=== PATIENT | male | born 1990 | race Hispanic/Latino ===

== ENCOUNTER 2017-06-30 09:38 | Emergency (ER) | payer MEDICAID ==
[2017-06-30 09:58] VITALS: O2SAT 99; BMI 21.9
[2017-06-30 10:57] LABS: BASO # 0.1 K/uL (0.0-0.2); BASO % 0.6 % (0.0-2.0); EOS # 0.1 K/uL (0.0-0.7); EOS % 1.3 % (0.0-4.0); HEMATOCRIT 38.1 % (35.0-51.0); LYMPH # 2.2 K/uL (1.0-4.3); LYMPH % 19.7 % (20.0-40.0); MEAN CORPUSCULAR HEMOGLOBIN 29.6 pg (27.0-31.0); MEAN CORPUSCULAR HGB CONC 32.6 g/dL (33.0-37.0); MEAN PLATELET VOLUME 8.2 fL (7.2-11.7); MONO % 9.3 % (0.0-10.0); RED CELL DISTRIBUTION WIDTH 14.5 % (11.5-14.5); WHITE BLOOD COUNT 11.1 K/uL (4.8-10.8)
[2017-06-30 11:02] LABS: RBC URINE 2 /hpf (0-3); URINE BILIRUBIN NEGATIVE (NEGATIVE); URINE BLOOD NEGATIVE (NEGATIVE); URINE COLOR Yellow (YELLOW); URINE GLUCOSE (UA) NORMAL (Normal); URINE KETONE NEGATIVE (NEGATIVE); URINE LEUKOCYTE ESTERASE NEG Leu/uL (Negative); URINE PROTEIN NEGATIVE (NEGATIVE); URINE UROBILINOGEN NORMAL mg/dL (0.2-1.0); WBC URINE < 1 /hpf (0-5)
--- NOTE | 2017-06-30 11:10 | C.PDOC ---
History Of Present Illness 27 year old male presents to the ED seeking detox from heroin and cocaine. His last use was one hour prior to arrival and has attempted detox in another facility previously. Patient notes occasional marijuana use and denies physical complaints, suicidal, or homicidal ideations. Time Seen by Provider: 06/30/17 10:08 Chief Complaint (Nursing): Substance Abuse History Per: Patient History/Exam Limitations: no limitations Suicide/Self Injury Attempted (Context): None Modifying Factor(s): Marijuana, Narcotics (heroin ), Cocaine Severity: None Pain Scale Rating Of: 0 Associated Symptoms: denies: Suicidal Thoughts, Suicidal Plan Involuntary Hold By: None Recent travel outside of the [place]: No Past Medical History Reviewed: Historical Data, Nursing Documentation, Vital Signs Vital Signs: Last Vital Signs Temp 97.5 F L 06/30/17 13:00 Pulse 70 06/30/17 13:00 Resp 20 06/30/17 13:00 BP 116/63 06/30/17 13:00 Pulse Ox 99 06/30/17 13:00 - Medical History PMH: Asthma Family History: States: Unknown Family Hx - Social History Hx Alcohol Use: Yes Hx Substance Use: Yes - Immunization History Hx Tetanus Toxoid Vaccination: No Hx Influenza Vaccination: No Hx Pneumococcal Vaccination: No Review Of Systems Constitutional: Negative for: Fever, Chills Cardiovascular: Negative for: Chest Pain, Palpitations Respiratory: Negative for: Cough, Shortness of Breath Gastrointestinal: Negative for: Nausea, Vomiting, Abdominal Pain, Diarrhea Physical Exam - Physical Exam Appears: Non-toxic, No Acute Distress Skin: Warm, Dry Head: Atraumatic, Normacephalic Eye(s): bilateral: Normal Inspection Oral Mucosa: Moist Neck: Normal ROM, Supple Chest: Symmetrical, No Deformity Cardiovascular: Rhythm Regular Respiratory: Normal Breath Sounds, No Rales, No Rhonchi, No Wheezing Gastrointestinal/Abdominal: Soft, No Tenderness, No Guarding Extremity: Bilateral: Atraumatic, Normal Color And Temperature, Normal ROM Neurological/Psych: Oriented x3, Normal Speech Gait: Steady ED Course And Treatment - Laboratory Results Result Diagrams: 06/30/17 10:52 06/30/17 10:52 Lab Interpretation: No Acute Changes O2 Sat by Pulse Oximetry: 99 (room air ) Pulse Ox Interpretation: Normal Progress Note: UA and blood work were ordered. cleaning and maintenance worker evaluated patient at bed side. Upon medical clearance, patient will be accepted for detox. Medical Decision Making Medical Decision Making: Labs ordered and reviewed. In my clinical judgment patient is medically cleared and stable for psychiatric admission. cleaning and maintenance worker Lito evaluates patient at bedside. Case was discussed with Dr Alanis who accepts case. Patient then decided he does not wish to stay for inpatient detox. He states has court date coming up and cannot be in hospital. Explain to patient if he changes his mind will have to restart process, he understands. Patient stable for discharge. Disposition Counseled Patient/Family Regarding: Diagnosis, Need For Followup - Disposition Disposition: HOME/ ROUTINE Disposition Time: 12:53 Condition: STABLE Additional Instructions: [facility] at [address] [place] [address]. Please call [phone] or [phone] to arrange appointment. If you need to speak to someone immediately call Crisis Hotline [phone] Please call [phone] or [phone] to inquire about our Detox availability , may speak to coordinator Lauren Instructions: Narcotic Abuse (ED) Forms: [employer] (Guamanian) - POA Present On Arrival: None - Clinical Impression Clinical Impression: Polysubstance abuse - PA / KNOWLEDGE MANAGER / Resident Statement MD/DO has reviewed & agrees with the documentation as recorded. - Scribe Statement The provider has reviewed the documentation as recorded by the Scribjosef Dunlap All medical record entries made by the Jackibjosef were at my direction and personally dictated by me. I have reviewed the chart and agree that the record accurately reflects my personal performance of the history, physical exam, medical decision making, and the department course for this patient. I have also personally directed, reviewed, and agree with the discharge instructions and disposition.
[2017-06-30 11:11] LABS: ALB/GLOB RATIO 1.2 (1.0-2.1); ALCOHOL SERUM < 10 mg/dl (0-10); ALKALINE PHOSPHATASE 58 U/L (38-126); ALT/SGPT 35 U/L (21-72); AST/SGOT 19 U/L (17-59); BILIRUBIN,TOTAL 0.2 mg/dL (0.2-1.3); BLOOD UREA NITROGEN 16 mg/dL (9-20); CALCIUM 8.9 mg/dl (8.6-10.4); CARBON DIOXIDE 29 mmol/L (22-30); CHLORIDE 102 mmol/L (98-107); GFR AFRICAN-AMERICAN > 60; GLUCOSE,RANDOM 68 mg/dL (75-110); POTASSIUM 3.9 mmol/L (3.6-5.2); SODIUM 143 mmol/L (132-148); TOTAL PROTEIN 6.3 g/dL (6.3-8.3)
[2017-06-30 13:00] VITALS: BP 116/63; PULSE 70; RESP 20; TEMP 97.5
== END 2017-06-30 13:24 | disposition home or self-care (01) ==
LOC: C.ER 09:38
DX: F19.10 Other psychoactive substance abuse, uncomplicated (principal)

== ENCOUNTER 2017-07-01 11:37 | Emergency (ER) | payer MEDICAID ==
[2017-07-01 11:37] VITALS: BMI 21.9
[2017-07-01 11:49] VITALS: BP 127/80; PULSE 76; RESP 16; TEMP 98; O2SAT 98
--- NOTE | 2017-07-01 12:00 | C.PDOC ---
History Of Present Illness 27 y/o male presents to the ED requesting heroin detox. Apparently patient was seen here yesterday and was pre-screened for detox admission, but ended up leaving prior to being admitted. He states his last use of heroin was this morning. Otherwise no physical complaints. PMD: None Time Seen by Provider: 07/01/17 11:44 Chief Complaint (Nursing): Substance Abuse History Per: Patient History/Exam Limitations: no limitations Onset/Duration Of Symptoms: Persistent Modifying Factor(s): Narcotics Severity: Moderate Associated Symptoms: denies: Depression, Suicidal Thoughts Past Medical History Reviewed: Historical Data, Nursing Documentation, Vital Signs Vital Signs: Last Vital Signs Temp 98 F 07/01/17 11:47 Pulse 76 07/01/17 11:47 Resp 16 07/01/17 11:47 BP 127/80 07/01/17 11:47 Pulse Ox 98 07/01/17 12:07 - Medical History PMH: Asthma Surgical History: No Surg Hx Family History: States: No Known Family Hx - Social History Hx Alcohol Use: Yes Hx Substance Use: Yes - Immunization History Hx Tetanus Toxoid Vaccination: No Hx Influenza Vaccination: No Hx Pneumococcal Vaccination: No Review Of Systems Except As Marked, All Systems Reviewed And Found Negative. Constitutional: Negative for: Fever Cardiovascular: Negative for: Chest Pain Respiratory: Negative for: Shortness of Breath Gastrointestinal: Negative for: Abdominal Pain Neurological: Negative for: Headache, Dizziness Psych: Positive for: Other (Substance abuse). Negative for: Suicidal ideation Physical Exam - Physical Exam Appears: Well, Non-toxic, No Acute Distress Skin: Normal Color, Warm, Dry Head: Atraumatic, Normacephalic Eye(s): bilateral: Normal Inspection Oral Mucosa: Moist Cardiovascular: Rhythm Regular Respiratory: Normal Breath Sounds, No Rales, No Rhonchi, No Wheezing Gastrointestinal/Abdominal: Normal Exam, Bowel Sounds, Soft, No Tenderness Back: Normal Inspection Extremity: Bilateral: Atraumatic, Normal Color And Temperature, Normal ROM Neurological/Psych: Oriented x3 Gait: Steady ED Course And Treatment O2 Sat by Pulse Oximetry: 98 (RA) Pulse Ox Interpretation: Normal Progress Note: Spoke with crisis counselor. No detox beds are currently available. Patient will be discharged home, was instructed to call again for prescreening or try for detox bed at later time/date. Disposition Counseled Patient/Family Regarding: Diagnosis, Need For Followup - Disposition Referrals: [facility] [Outside] Disposition: HOME/ ROUTINE Disposition Time: 12:00 Condition: STABLE Additional Instructions: CALL FOR PRESCREENING FOR DETOX OR RETURN TO ER TO TRY AT LATER TIME/DATE Instructions: Narcotic Abuse (ED) Forms: [employer] (Chilean) Print Language: BULGARIAN - Clinical Impression Clinical Impression: Heroin dependence - Scribe Statement The provider has reviewed the documentation as recorded by the Scribe Bhavana Gonzalez All medical record entries made by the Scribe were at my direction and personally dictated by me. I have reviewed the chart and agree that the record accurately reflects my personal performance of the history, physical exam, medical decision making, and the department course for this patient. I have also personally directed, reviewed, and agree with the discharge instructions and disposition.
== END 2017-07-01 12:08 | disposition home or self-care (01) ==
LOC: C.ER 11:37
DX: F11.20 Opioid dependence, uncomplicated (principal)

== ENCOUNTER → 2017-07-02 10:16 | Emergency (ER) | payer MEDICAID ==
[2017-07-02 10:16] VITALS: BMI 21.9
== END | disposition left against medical advice (07) ==
LOC: C.ER 10:16
DX: Z04.8 Encounter for examination and observation for other specified reasons (principal); Z02.9 Encounter for administrative examinations, unspecified

== ENCOUNTER 2017-07-10 15:12 | Emergency (ER) | payer MEDICAID ==
[2017-07-10 15:12] VITALS: BMI 21.9
[2017-07-10 15:47] VITALS: BP 117/73; PULSE 90; RESP 18; TEMP 97.9; O2SAT 98
--- NOTE | 2017-07-10 15:50 | C.PDOC ---
History Of Present Illness 27 yr old male presents to the ER requesting detox from cocaine and heroin. Patient is a pre-screen. Last use OPERATIONS MGR. Denies fever, chills, nausea, vomiting, abdominal pain, weakness or numbness. Denies SI, HI or hallucinations. REQUESTING DETOX COCAINE AND HEROIN. PRESCREEN. ONSET OPERATIONS MGR. NO FEVER. +REDNESS R ARM UNK DURATION. LAST INJECTION R AC. EXAM NAD SKIN +CELLULITIS R AC, INNER FOREARM. +TRACK VILLALPANDO B/L AC. PSYCH CALM COOPERATIVE NO ACUTE INTOX Time Seen by Provider: 07/10/17 15:46 History Per: Patient History/Exam Limitations: no limitations Onset/Duration Of Symptoms: Days Past Medical History Reviewed: Historical Data, Nursing Documentation, Vital Signs Vital Signs: Last Vital Signs Temp 97.9 F 07/10/17 15:47 Pulse 90 07/10/17 15:47 Resp 18 07/10/17 15:47 BP 117/73 07/10/17 15:47 Pulse Ox 98 07/10/17 16:37 - Medical History PMH: Asthma Family History: States: No Known Family Hx - Social History Hx Alcohol Use: Yes Hx Substance Use: Yes - Immunization History Hx Tetanus Toxoid Vaccination: No Hx Influenza Vaccination: No Hx Pneumococcal Vaccination: No Review Of Systems Except As Marked, All Systems Reviewed And Found Negative. Constitutional: Negative for: Fever, Chills Gastrointestinal: Negative for: Nausea, Vomiting, Abdominal Pain Neurological: Negative for: Weakness, Numbness Physical Exam - Physical Exam Appears: Non-toxic, No Acute Distress Skin: Warm, Dry, Other ((+) Cellulities right AC, inner forearm. Track villalpando bilateral AC. ) Head: Atraumatic, Normacephalic Oral Mucosa: Moist Chest: Symmetrical, No Tenderness Cardiovascular: Rhythm Regular, No Murmur Respiratory: Normal Breath Sounds, No Rales, No Rhonchi, No Stridor, No Wheezing Extremity: Normal ROM, No Swelling Neurological/Psych: Oriented x3, Normal Speech, Normal Motor ED Course And Treatment O2 Sat by Pulse Oximetry: 98 (RA) Pulse Ox Interpretation: Normal - Radiology CXR: Interpreted by Nd CXR Interpretation: Yes: No Acute Disease - CT Scan/US X-Ray - Right Forearm Other Rad Studies (CT/US): Interpreted By Me CT/US Interpretation: Negative Progress - Re-Evaluation Re-evaluation Note: 07/10/17 16:28 SP EVAL CRISIS PT NOW NO LONGER WISHES DETOX ADMISSION. 07/10/17 16:35 pt refusing all treatment, LEFT PRIOR TO LABS AND ANTIBIOTICS. LEFT PRIOR TO RECEIVING DC PAPERWORK OR RX. - Data Reviewed Data Reviewed: Diagnostic imaging Medical Decision Making Medical Decision Making: PLAN: * X-Ray - Right Forearm * CXR * Alcohol Serum * Drug Screen * CBC * Urinalysis * Clindamycin IV Disposition Counseled Patient/Family Regarding: Studies Performed, Diagnosis, Need For Followup - Disposition Referrals: [facility] [Outside] [facility] [Outside] Disposition: HOME/ ROUTINE Disposition Time: 16:36 Condition: STABLE Prescriptions: Clindamycin [Cleocin] 300 mg PO QID #28 cap Instructions: Cellulitis (ED), Polysubstance Abuse (ED) - Clinical Impression Clinical Impression: Drug abuse, Cellulitis - Scribe Statement The provider has reviewed the documentation as recorded by the Roge Jewell Provider Attestation: All medical record entries made by the Roge were at my direction and personally dictated by me. I have reviewed the chart and agree that the record accurately reflects my personal performance of the history, physical exam, medical decision making, and the department course for this patient. I have also personally directed, reviewed, and agree with the discharge instructions and disposition.
--- NOTE | 2017-07-10 16:25 | RAD ---
HISTORY: DETOX COMPARISON: No prior. TECHNIQUE: Chest PA and lateral FINDINGS: LUNGS: No active pulmonary disease. PLEURA: No significant pleural effusion identified. No pneumothorax apparent. CARDIOVASCULAR: Normal. OSSEOUS STRUCTURES: No significant abnormalities. VISUALIZED UPPER ABDOMEN: Normal. OTHER FINDINGS: None. IMPRESSION: No active disease.
--- NOTE | 2017-07-10 16:40 | RAD ---
PROCEDURE: Radiographs of the Right Forearm HISTORY: REDNESS HO IVDA COMPARISON: None available. TECHNIQUE: Frontal and lateral views obtained. FINDINGS: BONES: No fracture or destructive lesion. JOINT SPACES: Unremarkable. OTHER FINDINGS: None. IMPRESSION: No significant or acute findings to account for/ related to the clinical presentation. Concordant results with the preliminary interpretation rendered by the emergency department physician procedure.
== END 2017-07-10 16:58 | disposition home or self-care (01) ==
LOC: C.ER 15:12
DX: F19.10 Other psychoactive substance abuse, uncomplicated (principal); L03.113 Cellulitis of right upper limb

== ENCOUNTER 2017-11-23 15:45 | Inpatient (IN) | payer MEDICAID ==
[2017-11-23 15:45] VITALS: BMI 21.9
[2017-11-23 18:01] LABS: BASO % 0.5 % (0.0-2.0); EOS # 0.1 K/uL (0.0-0.7); HEMOGLOBIN 14.1 g/dL (12.0-18.0); LYMPH # 2.5 K/uL (1.0-4.3); MEAN CELL VOLUME 92.1 fL (80.0-94.0); MEAN CORPUSCULAR HEMOGLOBIN 31.3 pg (27.0-31.0); MEAN PLATELET VOLUME 8.9 fL (7.2-11.7); MONO # 0.5 K/uL (0.0-0.8); MONO % 4.6 % (0.0-10.0); NEUT # 6.9 K/uL (1.8-7.0); NEUT % 68.9 % (50.0-75.0); RBC 4.52 Mil/uL (4.40-5.90); RED CELL DISTRIBUTION WIDTH 13.9 % (11.5-14.5)
[2017-11-23 18:12] LABS: ALB/GLOB RATIO 1.5 (1.0-2.1); ALT/SGPT 30 U/L (21-72); AST/SGOT 18 U/L (17-59); BLOOD UREA NITROGEN 13 mg/dL (9-20); CALCIUM 8.5 mg/dl (8.6-10.4); GFR AFRICAN-AMERICAN > 60; GFR NON-AFRICAN AMERICAN > 60
[2017-11-23 18:20] LABS: BARBITURATES, UR NEGATIVE (NEGATIVE); BENZODIAZEPINES, UR NEGATIVE (NEGATIVE); PHENCYCLIDINE, UR NEGATIVE (NEGATIVE)
[2017-11-23 18:21] LABS: OPIATES, UR POSITIVE (NEGATIVE); SQUAMOUS EPITHIAL < 1 /hpf (0-5); URINE BACTERIA RARE (<OCC); URINE BILIRUBIN NEGATIVE (NEGATIVE); URINE BLOOD NEGATIVE (NEGATIVE); URINE CLARITY Clear (Clear); URINE COLOR Yellow (YELLOW); URINE GLUCOSE (UA) NORMAL (Normal); URINE LEUKOCYTE ESTERASE NEG Leu/uL (Negative); URINE NITRATE NEGATIVE (NEGATIVE); URINE PROTEIN NEGATIVE (NEGATIVE); URINE UROBILINOGEN NORMAL mg/dL (0.2-1.0)
--- NOTE | 2017-11-23 18:21 | C.PDOC ---
27 y/o male presents to ED requesting Heroin detox. Patient states last used was earlier today and denies IV use. Patient has no history of seizures and denies SI/HI or any other complaints at this time. (Teresa Mendez) History Per: Patient History/Exam Limitations: no limitations Onset/Duration Of Symptoms: Days Current Symptoms Are (Timing): Still Present Suicide/Self Injury Attempted (Context): None <Teersa Mendez - Last Filed: 11/23/17 18:53> <Lisandro Billingsley - Last Filed: 11/23/17 20:18> Time Seen by Provider: 11/23/17 16:08 Chief Complaint (Nursing): Substance Abuse Past Medical History Reviewed: Historical Data, Nursing Documentation, Vital Signs - Medical History PMH: Asthma Surgical History: No Surg Hx Family History: States: No Known Family Hx - Social History Hx Alcohol Use: Yes Hx Substance Use: Yes (Herion - sniff) - Immunization History Hx Tetanus Toxoid Vaccination: No Hx Influenza Vaccination: No Hx Pneumococcal Vaccination: No <Teresa Mendez - Last Filed: 11/23/17 18:53> Vital Signs: Last Vital Signs Temp 99 F 11/23/17 17:37 Pulse 100 H 11/23/17 17:37 Resp 14 11/23/17 17:37 BP 120/75 11/23/17 20:08 Pulse Ox 97 11/23/17 18:54 Review Of Systems Constitutional: Negative for: Fever, Chills Gastrointestinal: Negative for: Nausea, Vomiting Skin: Negative for: Rash Psych: Negative for: Suicidal ideation <Teresa Mendez - Last Filed: 11/23/17 18:53> Physical Exam - Physical Exam Appears: Non-toxic, No Acute Distress Skin: Warm, Dry, No Rash Head: Atraumatic, Normacephalic Eye(s): bilateral: Normal Inspection, EOMI Nose: Normal Oral Mucosa: Moist Neck: Normal ROM, Supple Chest: Symmetrical Cardiovascular: Rhythm Regular Respiratory: Normal Breath Sounds, No Accessory Muscle Use, No Rales, No Rhonchi , No Wheezing Gastrointestinal/Abdominal: Soft, No Tenderness, No Guarding, No Rebound Neurological/Psych: Oriented x3 Gait: Steady <Teresa Mendez - Last Filed: 11/23/17 18:53> ED Course And Treatment - Laboratory Results Result Diagrams: 11/23/17 17:57 11/23/17 17:57 O2 Sat by Pulse Oximetry: 97 (RA) Pulse Ox Interpretation: Normal Progress Note: CAse endorsed to Dr Billingsley pending crisis evaluation. <Teresa Mendez - Last Filed: 11/23/17 18:53> - Laboratory Results Result Diagrams: 11/23/17 17:57 11/23/17 17:57 <Lisandro Billingsley - Last Filed: 11/23/17 20:18> Disposition - Disposition Disposition Time: 18:53 <Teresa Mendez - Last Filed: 11/23/17 18:53> Discussed With DrReema: Lisa Silverio Doctor Will See Patient In The: Hospital Counseled Patient/Family Regarding: Diagnosis - Disposition Disposition Time: 20:17 <Lisandro Billingsley - Last Filed: 11/23/17 20:18> - Disposition Disposition: HOSPITALIZED Condition: STABLE Forms: [employer] (Setswana) - Clinical Impression Clinical Impression: Opioid dependence, Drug abuse - PA / PHLEBOTOMY LAB ASSISTANT / Resident Statement MD/DO has reviewed & agrees with the documentation as recorded. - Scribe Statement The provider has reviewed the documentation as recorded by the Scribe <Teresa Mendez - Last Filed: 11/23/17 18:53> <Lisandro Billingsley - Last Filed: 11/23/17 20:18> - Scribe Statement Na Hernandez All medical record entries made by the Scribe were at my direction and personally dictated by me. I have reviewed the chart and agree that the record accurately reflects my personal performance of the history, physical exam, medical decision making, and the department course for this patient. I have also personally directed, reviewed, and agree with the discharge instructions and disposition. (Teresa Mendez)
--- NOTE | 2017-11-23 20:41 | PCM.BM ---
<Ijeoma Marie - Last Filed: 11/23/17 20:40> Treatment Plan Problems - Problems identified on initial assessmt potiential for opiate withdrawal Date Initiated: 11/23/17 Time Initiated: 20:40 Assessment reference: NA Status: Active Treatment assets and liabiliti Patient Assests: ADL independent, physically healthy Patient Liabilities: substance abuse - Milieu Protocol Maintain good personal hygiene: daily Encourage regular showers, daily Remind patient to perform daily oral care, daily Assist patient to perform ADL's Maintain personal safety: every shift Educate patient to report safety concerns to staff, every shift Monitor environment for contraband/sharps Medication safety: Monitor for expected outcome, potential side effects: every shift, Assess barriers to learning: every shift, Assess readiness for medication education: every shift <Kate Alanis - Last Filed: 11/24/17 23:37> - Diagnosis (1) Opioid dependence Status: Acute Interventions: 11/24/17 23:37 * Assess 7x/week regarding severity of withdrawal * Educate regarding risks, benefits, side effects and alternatives of medications * Use Motivational Interviewing for abstinence * Use CBT for relapse prevention * Medication management for withdrawal symptoms * Encourage medication assisted treatment *
[2017-11-24] MEDS: Multiple Vitamins Tab PO SCH (11:02)
--- NOTE | 2017-11-24 15:35 | PCM.PSYCH ---
Initial Psychiatric Evaluation - Initial Psychiatric Evaluation Type of Admission: Voluntary Legal Status: Capacity Chief Complaint (in patient's own words): "I want to detox" History of Present Illness and Precipitating Events: The patient is a 27 single, , male patient with 1 small child. Pt lives with his parents and is not currently employed. He said he recently left [facility] on October because his girlfriend said she needed his help taking care of the baby. The pt does not live with girlfriend. The pt reports snorting 8 bags of heroin a day, which he began using 8 years ago. The pt also reports smoking cocaine, beginning at the age of 22. He reports drinking alcohol and smoking weed occasionally. Pt denies other substance use. The pt estimates that he has been to detox 15 times and reports that its because I dont listen. The pt has been to rehab 4 times in the past and has been in a methadone maintenance program where his dose was 60mg. He reports overdosing once or twice in the past. Patient is currently on probation until May. Patient reports he is HIV and Hepatitis negative. Fam Hx of alcoholism in both grandparents Medical Hx - Asthma and seasonal allergies\\ Psych Hx - denies Current Medications: Active Medications Generic Name Dose Route Start Last Admin Trade Name Freq PRN Reason Stop Dose Admin Clonidine HCl 0.1 mg 11/23/17 21:00 Catapres PO Q8 PRN COWS Score More or Equal to 5 Folic Acid 1 mg 11/24/17 10:00 11/24/17 11:02 Folic Acid PO 1 mg DAILY RIANA Administration Hydroxyzine HCl 25 mg 11/24/17 10:21 Atarax PO Q4H PRN Anxiety Ibuprofen 400 mg 11/23/17 21:02 Motrin Tab PO Q6H PRN Pain, moderate (4-7) Loperamide HCl 2 mg 11/23/17 21:00 Imodium PO Q8 PRN Diarrhea Multivitamins 1 tab 11/24/17 10:00 11/24/17 11:02 Hexavitamin PO 1 tab DAILY RIANA Administration Ondansetron HCl 4 mg 11/23/17 21:00 Zofran Tab PO Q8 PRN Nausea/Vomiting Thiamine HCl 100 mg 11/24/17 10:00 11/24/17 11:01 Vitamin B1 Tab PO 100 mg DAILY RIANA Administration Trazodone HCl 100 mg 11/24/17 10:21 Desyrel PO HS PRN Insomnia Past Psychiatric History - Past Psychiatric History Previous Treatment History: Inpatient Pertinent Medical Hx (Current Medical&Sleep Prob, Allergies): Allergies Allergy/AdvReac Type Severity Reaction Status Date / Time amoxicillin Allergy Intermediate Verified 11/23/17 17:40 apple Allergy Intermediate Verified 11/23/17 17:40 FISH Allergy Intermediate Verified 11/23/17 17:40 No Known Home Med 11/23/17 Review of Systems - Neurological Neurological: UNREMARKABLE - Psychiatric Psychiatric: Abnormal Sleep Pattern, Anxiety. absent: Depression, Hallucinations, Homicidal Ideation, Hopelessness, Suicidal Ideation Mental Status Examination - Personal Presentation Personal Presentation: Looks stated age - Affect Affect: Broad - Motor Activity Motor Activity: Calm - Reliability in Providing Information Reliability in Providing Information: Good - Speech Speech: Organized - Mood Mood: Neutral - Formal Thought Process Formal Thought Process: No Impairment - Obsessions/Compulsions Obsessions: None Compulsions: None - Cognitive Functions Orientation: Person, Place, Situation, Time Sensorium: Drowsy Attention/Concentration: Attentive Abstract Thinking: [place] Estimate of Intelligence: Average Judgement: Intact, as evidence by: Insight regarding need for hospitalization Memory: Recent intact, as evidence by: Ability to recall events of the day, Remote intact, as evidenced by: Abilit to recall sig. life events - Risk Risk: Withdrawal, Diminished functioning - Strength & Assets Inventory Strength & Assets Inventory: Cooperative - Limitations Limitations: Living alone Additional comments: unemployed, poor support DSM 5 DX - DSM 5 DSM 5 Diagnosis: Opioid use d/o - severe Opioid withdrawal Cocaine use d/o - severe Alcohol Use d/o - severe Cannabis Use d/o - moderate - Recommended/Plan of Treatment Treatment Recommendations and Plan of Treatment: Methadone detox Gabapentin for augmentation As needed medications All risks, benefits and alternatives of the meds discussed, and the pt agreed and understood. Attend groups and activities Supportive therapy and psychoeducation OK for abstinence CBT for relapse prevention Encourage MAT Refer to rehab or IOP, and self-help groups Smoking cessation with OK 35 min Projected ELOS: 4-5 days Prognosis: good with treatment
[2017-11-24 21:32] VITALS: RESP 18
[2017-11-25] MEDS: Multiple Vitamins Tab PO SCH (10:01)
[2017-11-25 11:15] VITALS: BP 123/82; PULSE 80; TEMP 98.5; O2SAT 100
--- NOTE | 2017-11-25 14:01 | PCM.PYCHDC ---
Mental Status Examination - Mental Status Examination Orientation: Person, Place, Situation, Time Memory: Intact Mood: Neutral Affect: Broad Speech: Appropriate Attention: WNL Concentration: WNL Association: WNL Fund of Knowledge: WNL Formal Thought Process: Hallucinations Suicidal Ideation: No Current Homicidal Ideation?: No Discharge Summary - Discharge Note Reason for Hospitalization: Opioid Detox Consultations:: List each consultation separately and include: 1. Reason for request. 2. Findings. 3. Follow-up Summary of Hospital Course include:: 1. Description of specific treatment plan utilized for patients during their course of treatmen. 2. Summarize the time- course for resolution of acute symptoms and/or regressed behaviors. 3. Describe issues identified and worked on during hospitalization. 4. Describe medication utilized. 5. Describe medical problems identified and treated. 6. Reassessment of suicide risk Summary of Hospital Course: On admission: The patient is a 27 single, , male patient with 1 small child. Pt lives with his parents and is not currently employed. He said he recently left [facility] on October because his girlfriend said she needed his help taking care of the baby. The pt does not live with girlfriend. The pt reports snorting 8 bags of heroin a day, which he began using 8 years ago. The pt also reports smoking cocaine, beginning at the age of 22. He reports drinking alcohol and smoking weed occasionally. Pt denies other substance use. The pt estimates that he has been to detox 15 times and reports that its because I dont listen. The pt has been to rehab 4 times in the past and has been in a methadone maintenance program where his dose was 60mg. He reports overdosing once or twice in the past. Patient is currently on probation until May. Patient reports he is HIV and Hepatitis negative. Fam Hx of alcoholism in both grandparents Medical Hx - Asthma and seasonal allergies\ Psych Hx - denies Hospital course: The pt was admitted and started on treatment with psychotherapy, support, psychoeducation and medications. DE and CBT used. The pt attended groups and activities, as well as milieu therapy. All the risks and benefits of medications are discussed and the patient understood and agreed. The pt improved with the treatments provided. After care discussed with the patient. The patient reported feeling better than he did yesterday and has no current complaints. He reports attending groups yesterday and speaking to the counselor briefly. However, the patient would like to sign out Against Medical Advice at this time. He reports no prospective plans following detox. Risks of signing out AMA were discussed with the patient, he reported understanding. - Diagnosis (1) Opioid dependence Status: Acute - Final Diagnosis (DSM 5) Follow-up Treatment Plan: Continue below medications after discharge. Use relapse prevention skills Return to ER or call 911 if suicidal, homicidal or symptoms relapse. Stay away from stress, alcohol and drugs. See primary doctor regularly and get labs.
== END 2017-11-25 11:15 | disposition home or self-care (01) | DRG 745 ==
LOC: C.ER 15:45 → C.7D 20:18
PROVIDERS: ADMIT Psychiatry & Neurology Psychiatry; ATTEND Psychiatry & Neurology Psychiatry
PROC: HZ2ZZZZ Detoxification Services for Substance Abuse Treatment (ICD-10-PCS; principal; 2017-11-23)
DX: F11.23 Opioid dependence with withdrawal (principal); F10.10 Alcohol abuse, uncomplicated; F12.90 Cannabis use, unspecified, uncomplicated; F14.90 Cocaine use, unspecified, uncomplicated; J45.909 Unspecified asthma, uncomplicated; Y90.0 Blood alcohol level of less than 20 mg/100 ml; Z65.3 Problems related to other legal circumstances

== ENCOUNTER 2018-04-27 17:21 | Emergency (ER) | payer MEDICAID ==
[2018-04-27 17:21] VITALS: BMI 21.9
[2018-04-27 17:39] VITALS: BP 146/89; PULSE 105; RESP 15; TEMP 99.3; O2SAT 98
--- NOTE | 2018-04-27 18:27 | C.PDOC ---
History Of Present Illness 28 year old male patient present to the ER requesting a detox from cocaine and heroin. Patient does not have suicide or homicide ideation. Patient has no complaints or any injuries. Time Seen by Provider: 04/27/18 17:41 Chief Complaint (Nursing): Substance Abuse History Per: Patient History/Exam Limitations: no limitations Onset/Duration Of Symptoms: Hrs Current Symptoms Are (Timing): Still Present Modifying Factor(s): Cocaine, Other (Heroin) Associated Symptoms: denies: Suicidal Thoughts, Other (homicide Ideation) Past Medical History Reviewed: Historical Data, Nursing Documentation, Vital Signs Vital Signs: Last Vital Signs Temp 99.3 F 04/27/18 17:37 Pulse 105 H 04/27/18 17:37 Resp 15 04/27/18 17:37 BP 146/89 04/27/18 17:37 Pulse Ox 98 04/27/18 18:50 - Medical History PMH: Asthma - [facility] FOR SUBSTANCE ABUSE TREATMENT (11/23/17) Family History: States: Unknown Family Hx - Social History Hx Alcohol Use: Yes Hx Substance Use: Yes (LAST USE 1 HOUR AGO) - Immunization History Hx Tetanus Toxoid Vaccination: No Hx Influenza Vaccination: No Hx Pneumococcal Vaccination: No Review Of Systems Constitutional: Negative for: Fever, Chills Cardiovascular: Negative for: Chest Pain, Palpitations Respiratory: Negative for: Cough, Shortness of Breath Neurological: Negative for: Altered Mental Status Psych: Negative for: Suicidal ideation Physical Exam - Physical Exam Appears: Non-toxic, No Acute Distress Skin: Normal Color, Warm, Dry Head: Atraumatic, Normacephalic Eye(s): bilateral: Normal Inspection Chest: Symmetrical, No Deformity Cardiovascular: Rhythm Regular Respiratory: Normal Breath Sounds, No Rales, No Rhonchi, No Wheezing Gastrointestinal/Abdominal: Soft, No Tenderness Back: No CVA Tenderness Extremity: Normal ROM (x4) Neurological/Psych: Oriented x3, Normal Speech Gait: Steady ED Course And Treatment - Laboratory Results Result Diagrams: 04/27/18 18:23 04/27/18 18:23 O2 Sat by Pulse Oximetry: 98 (RA) Pulse Ox Interpretation: Normal Medical Decision Making Medical Decision Making: Orders: Drug screen, blood work, urinalysis substance abuse - patient do not want detox now and would like to be discharge. Patient is ambulatory without complaint Will discharge home to follow up with medical clinic in 2 days Disposition - Disposition Referrals: [facility] [Outside] Disposition: HOME/ ROUTINE Disposition Time: 20:09 Condition: STABLE Additional Instructions: follow up with medical clinic in 2 days call to make an appointment return to hospital at any time for further care Instructions: Polysubstance Abuse (DC) Forms: [facility] ([place]), General Discharge Instructions - Clinical Impression Clinical Impression: Polysubstance abuse - Scribe Statement The provider has reviewed the documentation as recorded by the Jackibe Mcneill Do Provider Attestation: All medical record entries made by the Scribe were at my direction and personally dictated by me. I have reviewed the chart and agree that the record accurately reflects my personal performance of the history, physical exam, medical decision making, and the department course for this patient. I have also personally directed, reviewed, and agree with the discharge instructions and disposition.
[2018-04-27 18:28] LABS: BASO # 0.1 K/uL (0.0-0.2); BASO % 0.8 % (0.0-2.0); EOS # 0.1 K/uL (0.0-0.7); EOS % 0.9 % (0.0-4.0); HEMOGLOBIN 15.1 g/dL (12.0-18.0); LYMPH # 2.6 K/uL (1.0-4.3); LYMPH % 23.7 % (20.0-40.0); MEAN CORPUSCULAR HEMOGLOBIN 30.8 pg (27.0-31.0); MEAN CORPUSCULAR HGB CONC 33.5 g/dL (33.0-37.0); MEAN PLATELET VOLUME 8.2 fL (7.2-11.7); MONO # 0.7 K/uL (0.0-0.8); MONO % 6.7 % (0.0-10.0); NEUT # 7.5 K/uL (1.8-7.0); NEUT % 67.9 % (50.0-75.0); NRBC % 0.1 % (0.0-2.0); RBC 4.92 Mil/uL (4.40-5.90); RED CELL DISTRIBUTION WIDTH 13.5 % (11.5-14.5)
[2018-04-27 18:32] LABS: SQUAMOUS EPITHIAL < 1 /hpf (0-5); URINE BILIRUBIN NEGATIVE (NEGATIVE); URINE BLOOD NEGATIVE (NEGATIVE); URINE CLARITY Clear (Clear); URINE COLOR Yellow (YELLOW); URINE GLUCOSE (UA) NORMAL (Normal); URINE LEUKOCYTE ESTERASE NEG Leu/uL (Negative); URINE PROTEIN NEGATIVE (NEGATIVE)
[2018-04-27 18:44] LABS: ALB/GLOB RATIO 1.6 (1.0-2.1); ALBUMIN 4.7 g/dL (3.5-5.0); ALT/SGPT 32 U/L (21-72); AST/SGOT 31 U/L (17-59); BLOOD UREA NITROGEN 16 mg/dL (9-20); CALCIUM 9.4 mg/dl (8.6-10.4); GFR AFRICAN-AMERICAN > 60; GFR NON-AFRICAN AMERICAN > 60
[2018-04-27 19:07] LABS: BARBITURATES, UR NEGATIVE (NEGATIVE); BENZODIAZEPINES, UR NEGATIVE (NEGATIVE); PHENCYCLIDINE, UR NEGATIVE (NEGATIVE)
[2018-04-27 19:22] LABS: OPIATES, UR POSITIVE (NEGATIVE)
== END 2018-04-27 20:16 | disposition home or self-care (01) ==
LOC: C.ER 17:21
DX: F19.10 Other psychoactive substance abuse, uncomplicated (principal)